=== PATIENT | male | born 1965 | race African-American/Black ===

== ENCOUNTER 2018-07-08 04:50 | Inpatient (IN) | payer OTHER, SELFPAY ==
[2018-07-08] MEDS ORDERED: Aspirin 325 MG TAB ONE (08:03)
[2018-07-08 09:03] LABS: Troponin I Less than 0.010 ng/mL (< 0.028)
[2018-07-08] MEDS ORDERED: Ondansetron PF 4 MG/2 ML Vial IVP PRN (10:22)
[2018-07-08] MEDS ORDERED: Acetaminophen 325 MG TAB PO PRN (10:22)
[2018-07-08] MEDS ORDERED: Ondansetron ODT 4 MG TAB PO PRN (10:22)
[2018-07-08] MEDS ORDERED: Dextrose 5% in Water 1,000 ML IV PRN (10:24)
[2018-07-08] MEDS ORDERED: HumaLOG 300 UNITS/3 ML VIAL SC PRN ×2 (10:24)
[2018-07-08] MEDS ORDERED: Dextrose 50% Abboject 50 ML SYRINGE SLOW IVP PRN (10:24)
[2018-07-08 12:01] LABS: #Basophils 0.1 thou/uL (0.0-0.2); #Eosinphils 0.4 thou/uL (0.0-0.7); #Lymphocytes 2.8 thou/uL (1.20-3.40); #Monocytes 0.4 thou/uL (0.11-0.59); #Neutrophils 4.1 thou/uL (1.40-6.50); %Basophils 1.2 % (0.0-1.0); %Eosinophils 5.1 % (0.0-10.0); %Lymphocytes 35.3 % (21.0-51.0); %Monocytes 5.3 % (0.0-10.0); %Neutrophils 53.1 % (42.0-75.0); Hemoglobin 11.8 g/dL (14.0-18.0); Mean Corpuscular HGB CONC 30.9 g/dL (32.0-36.0); Mean Corpuscular Hemoglobin 25.4 pg (27.0-31.0); Mean Corpuscular Volume 82.1 fL (78.0-98.0); Mean Platelet Volume 8.1 fL (7.4-10.4); Platelet Count 267 thou/uL (130-400); RBC Distribution Width 11.9 % (11.5-14.5); Red Blood Cell (RBC) Count 4.63 mill/uL (4.70-6.10); White Blood Cell (WBC) Count 7.8 thou/uL (4.8-10.8)
[2018-07-08 12:20] LABS: ALT (SGPT) 21 U/L (8-55); AST (SGOT) 18 U/L (5-34); Albumin 4.3 g/dL (3.5-5.0); Alkaline Phosphatase 69 U/L (40-150); Anion Gap 12 mmol/L (10-20); BUN (Urea Nitrogen) 17 mg/dL (8.4-25.7); Bilirubin, Total 0.6 mg/dL (0.2-1.2); Calc. Creatinine Clearance 0 mL/min (70-130); Calcium 9.4 mg/dL (7.8-10.44); Carbon Dioxide 24 mmol/L (22-29); Chloride 107 mmol/L (98-107); Estimated GFR-MDRD Greater than 90; Globulin 3.2 g/dL (2.4-3.5); Glucose 107 mg/dL (70-105); Potassium 4.1 mmol/L (3.5-5.1); Protein, Total 7.5 g/dL (6.0-8.3); Sodium 139 mmol/L (136-145)
[2018-07-08 12:25] LABS: Troponin I Less than 0.010 ng/mL (< 0.028)
--- NOTE | 2018-07-08 13:06 | HP ---
PRIMARY CARE PHYSICIAN: Dr. Luz Beasley. CHIEF COMPLAINT: Chest pain. HISTORY OF PRESENT ILLNESS: Mr. Partida is a pleasant 53-year-old male with a past medical history of coronary artery disease, hypertension, hyperlipidemia, and diabetes mellitus type 2, who had presented to [facility] with left-sided chest pain that started yesterday morning. He states he had gone to work and thought his chest pain would improve throughout the day; however, this was not the case. Therefore, he had left work, went home and took a baby aspirin. He states after he laid down for quite a while, his chest pain continued. Therefore, he brought himself to the ER. He states the pain is localized, but denies any radiation. He denies any fever, chills, headache, dizziness, any shortness of breath, abdominal pain, nausea, or vomiting. He denies any numbness, tingling down his extremities. He had denied any recent cardiac workup; however, he states he had a heart catheterization several years ago, which found stenosis, but no stents were placed. He states that he does not have any primary bulk pigment reducer that he follows up with and he sees his primary care physician for his underlying conditions. Currently, he states that the chest pain is improved. He got a dose of oral aspirin and topical nitroglycerin. His initial workup included a chest x-ray, which found no acute cardiopulmonary abnormalities. His initial troponin was found to be less than 0.010 x 2. Lipid panel was essentially unremarkable with total cholesterol 130, LDL 79, and HDL 44. Awaiting further recheck of his labs; however, done earlier at 2:00 a.m., essentially unremarkable with blood glucose of 124. It was determined that he would be admitted under observation for further cardiac workup. REVIEW OF SYSTEMS: All other systems reviewed and found to be negative unless mentioned in the HPI. PAST MEDICAL HISTORY: Coronary artery disease, hypertension, hyperlipidemia, and diabetes mellitus type 2. SURGICAL HISTORY: Cardiac catheterization with no stents placed. SOCIAL HISTORY: Alcohol use socially once or twice a month. He denies any tobacco or illicit drug use. PSYCHIATRIC HISTORY: None. ALLERGIES: NO KNOWN DRUG ALLERGIES. HOME MEDICATIONS: 1. Lisinopril 40 mg once daily. 2. Metformin 1000 mg twice daily. 3. Atorvastatin 40 mg once daily. 4. Levothyroxine 125 mcg oral once daily. PHYSICAL EXAMINATION: VITAL SIGNS: BP 110/64, pulse 82, respirations 17, O2 saturation 96% on room air. GENERAL: Alert and oriented x3, in no acute distress noted. HEENT: Atraumatic, normocephalic. Pupils round and reactive to light. Extraocular muscles intact. Moist mucous membranes noted. NECK: Soft and supple. No JVD. Nontender. No thyromegaly. CARDIOVASCULAR: Positive S1 and S2. Regular rate and rhythm. No murmurs, rubs, or gallops noted. RESPIRATORY: Clear to auscultation bilaterally. No wheezes, rales, or rhonchi. ABDOMEN: Soft, nontender, obese. Bowel sounds present. MUSCULOSKELETAL: Strength 5+ bilaterally upper and lower extremities. Moves all extremities equal. No edema noted. SKIN: Warm, dry, and intact. No lesions. No ulcerations noted. NEUROLOGIC: Cranial nerves 2 through 12 intact. No focal deficits noted. Speech normal and intact. Gait not assessed. PSYCHIATRIC: Good mood and affect. LABORATORY DATA: WBC 8.8, RBC 4.52, hemoglobin 11.4, platelet 272. Sodium 142, potassium 4.0, carbon dioxide 21, anion gap 16, BUN 26, creatinine 0.97, estimated GFR greater than 90, glucose 124. Last documented hemoglobin A1c 03/25/2018 was 6.1. BNP 34. Troponin less than 0.010 x2. Total cholesterol 130, LDL 79, HDL of 44. DIAGNOSTIC IMAGING: Chest x-ray showed no acute cardiopulmonary abnormalities. ASSESSMENT AND PLAN: 1. Chest pain, rule out cardiac etiology with treadmill stress test, trend troponins, currently negative x2. Continue on all home medications for blood pressure and underlying coronary artery disease. If stress test is significant, we will consult Cardiology Services. 2. History of hypertension. Continue on the patient's home regimen including lisinopril. Monitor vital signs closely. 3. History of hypothyroidism, continue on home dose of levothyroxine, check TSH. 4. History of diabetes mellitus type 2, hold the patient's home medication of metformin. Place on insulin sliding scale with Accu-Cheks. 5. Hyperlipidemia. Continue on the patient's home dose of atorvastatin. Lipid panel unremarkable at this time. 6. Deep venous thrombosis and gastrointestinal prophylaxis. CODE STATUS: Full code. DISPOSITION: Pending further workup and clinical findings. Rule out cardiac etiology of his chest pain. If his workup is negative, he will likely be discharged with close followup with his primary care physician in 24 to 48 hours. Job ID: [id number]
[2018-07-08 16:58] VITALS: BMI 32.2
[2018-07-08] MEDS: Famotidine 20 MG TAB PO SCH (20:20)
[2018-07-08] MEDS ORDERED: Famotidine/PF 20 mg/2ml Vial SLOW IVP SCH (21:00)
[2018-07-09 05:48] LABS: #Basophils 0.1 thou/uL (0.0-0.2); #Eosinphils 0.5 thou/uL (0.0-0.7); #Lymphocytes 2.5 thou/uL (1.20-3.40); #Monocytes 0.6 thou/uL (0.11-0.59); %Basophils 1.1 % (0.0-1.0); %Lymphocytes 28.6 % (21.0-51.0); %Monocytes 6.6 % (0.0-10.0); %Neutrophils 57.7 % (42.0-75.0); Hemoglobin 12.2 g/dL (14.0-18.0); Mean Corpuscular HGB CONC 30.6 g/dL (32.0-36.0); Mean Corpuscular Hemoglobin 25.3 pg (27.0-31.0); Mean Corpuscular Volume 82.7 fL (78.0-98.0); Mean Platelet Volume 8.4 fL (7.4-10.4); Platelet Count 270 thou/uL (130-400); Red Blood Cell (RBC) Count 4.82 mill/uL (4.70-6.10); White Blood Cell (WBC) Count 8.6 thou/uL (4.8-10.8)
[2018-07-09 06:04] LABS: Anion Gap 13 mmol/L (10-20); BUN (Urea Nitrogen) 13 mg/dL (8.4-25.7); Calc. Creatinine Clearance 150 mL/min (70-130); Calcium 9.9 mg/dL (7.8-10.44); Carbon Dioxide 25 mmol/L (22-29); Chloride 104 mmol/L (98-107); Estimated GFR-MDRD Greater than 90; Glucose 191 mg/dL (70-105); Potassium 4.1 mmol/L (3.5-5.1); Sodium 138 mmol/L (136-145)
[2018-07-09] MEDS: Enoxaparin Sodium 40 MG/0.4 ML SYRINGE SC SCH (08:37)
[2018-07-09] MEDS: Levothyroxine Sodium 125 MCG TAB PO SCH (08:37)
[2018-07-09] MEDS: Aspirin Chewable 81 MG TAB PO SCH (08:37)
[2018-07-09] MEDS: Lisinopril 20 MG TAB PO SCH (08:37)
[2018-07-09] MEDS: Famotidine 20 MG TAB PO SCH ×2 (08:37→20:31)
[2018-07-09] MEDS ORDERED: Non-Formulary Item 1 EACH (Aspirin 81 MG) PO SCH (09:00)
[2018-07-09] MEDS ORDERED: Non-Formulary Item 1 EACH (Lisinopril [Lisinopril] 40 MG) PO SCH (09:00)
--- NOTE | 2018-07-09 11:56 | NM ---
NUCLEAR MEDICINE CARDIAC STRESS TEST WITH EJECTION FRACTION: HISTORY: Chest pain. COMPARISON: None. TECHNIQUE: Stress and rest were performed after the intravenous administration of 33 and 27 mCi Technetium 99m s estamibi, respectively. FINDINGS: There is a small focal area of scar of the left ventricular apex. No reversible ischemic defect. There is global hypokinesis with ejection fraction of 33%. IMPRESSION: 1. Small apical scar due to prior infarct. 2. Global hypokinesis with ejection fraction of 33%. POS: REESE
--- NOTE | 2018-07-09 15:32 | PDOC.PN ---
- Subjective Encounter Start Date: 07/09/18 Encounter Start Time: 15:28 Patient lying in bed, he reports feeling better. Stress test showing decreased EF of 33% with global hypokenesis. He denies chest pain, shortness of breath or palpitations. - Objective Resuscitation Status - Order Detail: 07/08/18 10:22 Resuscitation Status Routine Co-Sign Provider: Resuscitation Status: FULL: Full Resuscitation MAR Reviewed: Yes Vital Signs & Weight: Vital Signs (12 hours) Temp Pulse Resp BP BP Pulse Ox 07/09/18 11:57 97.9 F 72 22 H 128/74 98 07/09/18 08:37 127/79 07/09/18 07:36 98.4 F 70 20 131/78 97 07/09/18 04:01 97.4 F L 79 20 127/79 97 Weight Weight 244 lb 2 oz I&O: 07/08/18 07/09/18 07/10/18 06:59 06:59 06:59 Intake Total 800 360 Balance 800 360 Result Diagrams: 07/09/18 04:28 07/09/18 04:28 Additional Labs: Accuchecks 07/09/18 07/09/18 07/08/18 10:25 06:27 21:02 POC Glucose 139 H 113 H 135 H Radiology Reviewed by me: Yes Phys Exam - Physical Examination Constitutional: NAD HEENT: PERRLA, moist MMs, oral pharynx no lesions Neck: no nodes, full ROM Respiratory: no wheezing, clear to auscultation bilateral Cardiovascular: RRR, no rub Gastrointestinal: soft, non-tender, positive bowel sounds Musculoskeletal: no edema, pulses present Neurological: non-focal, moves all 4 limbs Lymphatic: no nodes Psychiatric: normal affect, A&O x 3 Skin: no rash, cap refill <2 seconds Dx/Plan (1) Systolic heart failure Code(s): I50.20 - UNSPECIFIED SYSTOLIC (CONGESTIVE) HEART FAILURE Status: Acute (2) Hypertension Code(s): I10 - ESSENTIAL (PRIMARY) HYPERTENSION Status: Acute (3) Diabetes Code(s): E11.9 - TYPE 2 DIABETES MELLITUS WITHOUT COMPLICATIONS Status: Acute (4) Chest pain Code(s): R07.9 - CHEST PAIN, UNSPECIFIED Status: Acute - Plan cont current plan of care, DVT proph w/lovenox * Continue medical management * Add low dose carvedilol as HR and BP can tolerate * Check echo * Discussed stress results with patient * If echo abnormal will place consult for cardiology for further evaluation * Patient may require lifevest
[2018-07-09] MEDS: Carvedilol 3.125 MG TAB PO SCH (16:48)
[2018-07-09] MEDS: Atorvastatin Calcium 40 MG TAB PO SCH (20:31)
[2018-07-10 05:35] LABS: #Basophils 0.1 thou/uL (0.0-0.2); #Eosinphils 0.6 thou/uL (0.0-0.7); #Lymphocytes 2.7 thou/uL (1.20-3.40); #Monocytes 0.5 thou/uL (0.11-0.59); #Neutrophils 4.7 thou/uL (1.40-6.50); %Basophils 1.3 % (0.0-1.0); %Eosinophils 6.5 % (0.0-10.0); %Lymphocytes 30.9 % (21.0-51.0); %Monocytes 6.3 % (0.0-10.0); Hemoglobin 12.5 g/dL (14.0-18.0); Mean Corpuscular HGB CONC 31.1 g/dL (32.0-36.0); Mean Corpuscular Hemoglobin 25.7 pg (27.0-31.0); Mean Corpuscular Volume 82.6 fL (78.0-98.0); Mean Platelet Volume 8.1 fL (7.4-10.4); Platelet Count 277 thou/uL (130-400); Red Blood Cell (RBC) Count 4.88 mill/uL (4.70-6.10); White Blood Cell (WBC) Count 8.6 thou/uL (4.8-10.8)
[2018-07-10 05:54] LABS: Anion Gap 12 mmol/L (10-20); BUN (Urea Nitrogen) 16 mg/dL (8.4-25.7); Calc. Creatinine Clearance 156 mL/min (70-130); Calcium 9.5 mg/dL (7.8-10.44); Carbon Dioxide 26 mmol/L (22-29); Chloride 104 mmol/L (98-107); Estimated GFR-MDRD Greater than 90; Glucose 121 mg/dL (70-105); Potassium 3.9 mmol/L (3.5-5.1); Sodium 138 mmol/L (136-145)
[2018-07-10] MEDS: Aspirin Chewable 81 MG TAB PO SCH (08:15)
[2018-07-10] MEDS: Famotidine 20 MG TAB PO SCH ×2 (08:15→21:03)
[2018-07-10] MEDS: Enoxaparin Sodium 40 MG/0.4 ML SYRINGE SC SCH (08:15)
[2018-07-10] MEDS: Carvedilol 3.125 MG TAB PO SCH ×2 (08:15→17:52)
[2018-07-10] MEDS: Lisinopril 20 MG TAB PO SCH (08:16)
[2018-07-10] MEDS: Levothyroxine Sodium 125 MCG TAB PO SCH (08:16)
--- NOTE | 2018-07-10 17:10 | PDOC.PN ---
- Subjective Encounter Start Date: 07/10/18 Encounter Start Time: 17:02 Patient sitting up in bed, he had echo this morning, results pending. He reports feeling good today. Denies any further chest pain, palpitations, shortness of breath. He has tolerated low dose carvedilol so far. - Objective Resuscitation Status - Order Detail: 07/08/18 10:22 Resuscitation Status Routine Co-Sign Provider: Resuscitation Status: FULL: Full Resuscitation MAR Reviewed: Yes Vital Signs & Weight: Vital Signs (12 hours) Temp Pulse Resp BP BP Pulse Ox 07/10/18 16:11 98.5 F 77 16 127/82 98 07/10/18 11:25 98.1 F 71 20 114/70 100 07/10/18 08:00 98.0 F 67 20 134/76 99 07/10/18 05:06 59 L 18 133/77 99 Weight Weight 241 lb 4.8 oz I&O: 07/09/18 07/10/18 07/11/18 06:59 06:59 06:59 Intake Total 800 1420 Balance 800 1420 Result Diagrams: 07/10/18 04:38 07/10/18 04:38 Additional Labs: Accuchecks 07/10/18 07/10/18 07/09/18 16:46 11:29 20:29 POC Glucose 120 H 105 118 H Radiology Reviewed by me: Yes Phys Exam - Physical Examination Constitutional: NAD HEENT: PERRLA, moist MMs, oral pharynx no lesions Neck: no nodes, full ROM Respiratory: no wheezing, clear to auscultation bilateral Cardiovascular: RRR, no significant murmur Gastrointestinal: soft, positive bowel sounds Musculoskeletal: no edema, pulses present Neurological: non-focal, moves all 4 limbs Lymphatic: no nodes Psychiatric: normal affect, A&O x 3 Skin: no rash, cap refill <2 seconds Dx/Plan (1) Systolic heart failure Code(s): I50.20 - UNSPECIFIED SYSTOLIC (CONGESTIVE) HEART FAILURE Status: Acute (2) Hypertension Code(s): I10 - ESSENTIAL (PRIMARY) HYPERTENSION Status: Acute (3) Diabetes Code(s): E11.9 - TYPE 2 DIABETES MELLITUS WITHOUT COMPLICATIONS Status: Acute (4) Chest pain Code(s): R07.9 - CHEST PAIN, UNSPECIFIED Status: Acute - Plan cont current plan of care, DVT proph w/lovenox * Continue medical management * Due to systolic heart failure and reduced EF on stress test will make inpatient * He is tolerating low dose carvedilol * Consult cardiology placed * Await echo
[2018-07-10] MEDS: Atorvastatin Calcium 40 MG TAB PO SCH (21:03)
[2018-07-11 05:01] LABS: #Basophils 0.1 thou/uL (0.0-0.2); #Eosinphils 0.5 thou/uL (0.0-0.7); #Lymphocytes 3.3 thou/uL (1.20-3.40); #Monocytes 0.7 thou/uL (0.11-0.59); #Neutrophils 5.3 thou/uL (1.40-6.50); %Basophils 0.8 % (0.0-1.0); %Eosinophils 5.1 % (0.0-10.0); %Lymphocytes 33.2 % (21.0-51.0); %Neutrophils 53.9 % (42.0-75.0); Hemoglobin 12.5 g/dL (14.0-18.0); Mean Corpuscular HGB CONC 31.1 g/dL (32.0-36.0); Mean Corpuscular Hemoglobin 25.5 pg (27.0-31.0); Mean Corpuscular Volume 81.9 fL (78.0-98.0); Mean Platelet Volume 8.1 fL (7.4-10.4); Platelet Count 293 thou/uL (130-400); RBC Distribution Width 11.8 % (11.5-14.5); Red Blood Cell (RBC) Count 4.92 mill/uL (4.70-6.10); White Blood Cell (WBC) Count 9.8 thou/uL (4.8-10.8)
[2018-07-11] MEDS ORDERED: diphenhydrAMINE 25 MG CAP PO PRN (05:17)
[2018-07-11] MEDS: Lisinopril 20 MG TAB PO SCH (08:26)
[2018-07-11] MEDS: Aspirin Chewable 81 MG TAB PO SCH (08:27)
[2018-07-11] MEDS: Levothyroxine Sodium 125 MCG TAB PO SCH (08:27)
[2018-07-11] MEDS: Carvedilol 3.125 MG TAB PO SCH ×2 (08:27→17:47)
[2018-07-11] MEDS: Famotidine 20 MG TAB PO SCH ×2 (08:27→20:28)
[2018-07-11] MEDS: Enoxaparin Sodium 40 MG/0.4 ML SYRINGE SC SCH (08:27)
--- NOTE | 2018-07-11 18:03 | PDOC.PN ---
- Subjective Encounter Start Date: 07/11/18 Encounter Start Time: 18:01 Patient lying in bed, he reports feeling well. Denies chest pain, shortness of breath or palpitations. Tolerating carvedilol, lisinopril and other medical management. Echo showing EF 30% - Objective Resuscitation Status - Order Detail: 07/08/18 10:22 Resuscitation Status Routine Co-Sign Provider: Resuscitation Status: FULL: Full Resuscitation MAR Reviewed: Yes Vital Signs & Weight: Vital Signs (12 hours) Temp Pulse Resp BP Pulse Ox 07/11/18 15:30 98.8 F 70 15 140/83 100 07/11/18 11:12 98.6 F 64 15 124/58 L 96 07/11/18 08:25 97 07/11/18 07:14 97.7 F 70 16 128/75 97 07/11/18 06:07 98 Weight Weight 235 lb 6.4 oz I&O: 07/10/18 07/11/18 07/12/18 06:59 06:59 06:59 Intake Total 1420 1670 Output Total 525 Balance 1420 1145 Result Diagrams: 07/11/18 04:42 07/10/18 04:38 Additional Labs: Accuchecks 07/11/18 07/11/18 07/11/18 16:40 10:06 04:43 POC Glucose 109 125 H 103 07/10/18 20:36 POC Glucose 146 H Radiology Reviewed by me: Yes Phys Exam - Physical Examination Constitutional: NAD HEENT: PERRLA, moist MMs, oral pharynx no lesions Neck: no nodes, full ROM Respiratory: no wheezing, clear to auscultation bilateral Cardiovascular: RRR, no significant murmur Gastrointestinal: soft, non-tender, positive bowel sounds Musculoskeletal: no edema, pulses present Neurological: non-focal, moves all 4 limbs Lymphatic: no nodes Psychiatric: normal affect, A&O x 3 Skin: no rash, cap refill <2 seconds Dx/Plan (1) Systolic heart failure Code(s): I50.20 - UNSPECIFIED SYSTOLIC (CONGESTIVE) HEART FAILURE Status: Acute (2) Hypertension Code(s): I10 - ESSENTIAL (PRIMARY) HYPERTENSION Status: Acute (3) Diabetes Code(s): E11.9 - TYPE 2 DIABETES MELLITUS WITHOUT COMPLICATIONS Status: Acute (4) Chest pain Code(s): R07.9 - CHEST PAIN, UNSPECIFIED Status: Acute - Plan cont current plan of care, DVT proph w/lovenox * Continue medical management * Echo explained with patient * Cardiology following, appreciate further recommendations * Monitor vitals and labs *
[2018-07-11] MEDS: Atorvastatin Calcium 40 MG TAB PO SCH (20:28)
--- NOTE | 2018-07-11 21:20 | CON ---
DATE OF CONSULTATION: HISTORY OF PRESENT ILLNESS: Tien Partida is a 53-year-old black male who states that in 1997, he underwent cardiac catheterization at [facility] in [place]. He was told that his heart was enlarged, but that he had normal coronary arteries and that his heart was strong. He then saw Dr. Rajan in December 2015 in the office. EKG showed left ventricular hypertrophy. He was sent for evaluation of the abnormal EKG and found to have very high blood pressures. It was recommended that he undergo echocardiography, however, he never did return for followup. He now presents complaining of 3 episodes of chest discomfort that awakened him in the night. He describes this as a sharp stabbing pain in the lower part of his sternum without radiation. The pain was definitely pleuritic in nature and each episode would last 1 to 2 minutes. Also, over the last 3 or 4 months, he has noted increasing dyspnea on exertion. He denies any exertional chest discomfort. He also denies any leg edema. Due to the chest pain, he came to the emergency room, was treated with topical nitrates as well as chewable aspirin. He has undergone Cardiolite testing which revealed a small apical scar, felt to be due to infarct. There was global hypokinesis with ejection fraction of 33%. Echo was then performed, which revealed ejection fraction of 30% to 35% with evidence for diastolic dysfunction, left atrial enlargement, mild mitral regurgitation, and mild tricuspid regurgitation. PAST MEDICAL HISTORY: Hypertension, hyperlipidemia, diabetes, hypothyroidism, obesity (states he has lost 60 pounds since December). OPERATIONS: None except cardiac catheterization. MEDICATIONS: 1. Aspirin 81 daily. 2. Atorvastatin 40 at bedtime. 3. Levothyroxine 125 mcg daily. 4. Lisinopril 40 daily. 5. Metformin 1000 mg b.i.d. SOCIAL HISTORY: He stopped smoking 10 years ago. He rarely drinks. REVIEW OF SYSTEMS: A 10-point review of systems is otherwise unremarkable. PHYSICAL EXAMINATION: VITAL SIGNS: Blood pressure 123/75, pulse 68. HEENT: PERRL. NECK: Supple. CHEST: Clear. CARDIAC: S1 and S2 normal without any S3, S4, or murmurs. ABDOMEN: Normal bowel sounds without tenderness or organomegaly. EXTREMITIES: Revealed no clubbing, cyanosis, or edema. NEUROLOGICAL: Grossly intact. SKIN: Warm and dry. LABORATORY DATA: Cardiolite findings and echo as noted above. EKG reveals normal sinus rhythm and voltage criteria for left ventricular hypertrophy. Hemoglobin 12.5, hematocrit 40.3, white count 9800, platelets 293,000. Troponin I, all negative x4. Sodium 138, potassium 3.9, chloride 104, carbon dioxide 26, BUN 16, creatinine 0.84. TSH is normal. Cholesterol 130, triglycerides 36, HDL 44 , LDL 79. IMPRESSION: 1. Atypical chest discomfort with sharp stabbing pain and negative cardiac enzymes. I doubt that this pain is cardiac in nature. 2. Abnormal Cardiolite with finding of apical fixed defect. 3. Cardiomyopathy of uncertain etiology with ejection fraction of 30% to 35%. 4. Hypertension. 5. Hypercholesterolemia, poorly controlled, LDL 79 and diabetic. 6. Diabetes. 7. Former smoker. PLAN: Situation discussed with Mr. Partida. With his fixed apical defect as well as moderate left ventricular dysfunction, his coronary anatomy needs to be defined. Risks of catheterization were discussed including , myocardial infarction, dye reaction, vascular injury, CVA, transfusion, kidney damage, limb amputation, etc. Risks of intervention with stent placement were discussed including , myocardial infarction, emergent CABG, restenosis, stent thrombosis, vessel perforation, etc. He will be evaluated by Dr. Rajan on Friday, 13 of July. Job ID: [id number] [facility]ERY[facility]uf
[2018-07-11] MEDS ORDERED: Communication Order-Pharmacy FS SCH (21:45)
[2018-07-12] MEDS: Carvedilol 3.125 MG TAB PO SCH ×2 (08:42→17:51)
[2018-07-12] MEDS: Famotidine 20 MG TAB PO SCH ×2 (08:43→20:26)
[2018-07-12] MEDS: Levothyroxine Sodium 125 MCG TAB PO SCH (08:43)
[2018-07-12] MEDS: Aspirin Chewable 81 MG TAB PO SCH (08:43)
[2018-07-12] MEDS: Lisinopril 20 MG TAB PO SCH (08:43)
[2018-07-12] MEDS: Enoxaparin Sodium 40 MG/0.4 ML SYRINGE SC SCH (08:44)
--- NOTE | 2018-07-12 14:15 | PDOC.EVN ---
Event Note - Event Note Event Note: Discussed case with Heath. Reviewed record. Ira'd patient. He is doing well. No pain. Breathing better. Heart Regular, no M, Lungs CTAB. Newly diagnosed cardiomyopathy with multiple CAD risk factors. Stable for now. Coronary cath in am. All patient questions answered.
--- NOTE | 2018-07-12 16:21 | PDOC.PN ---
- Subjective Encounter Start Date: 07/12/18 Encounter Start Time: 16:17 Patient lying in bed with several family and friends at bedside. He denies chest pain, shortness of breath or abdominal pain. Plan for heart cath tomorrow with Dr Rajan. - Objective Resuscitation Status - Order Detail: 07/08/18 10:22 Resuscitation Status Routine Co-Sign Provider: Resuscitation Status: FULL: Full Resuscitation MAR Reviewed: Yes Vital Signs & Weight: Vital Signs (12 hours) Temp Pulse Resp BP BP Pulse Ox 07/12/18 16:08 98.2 F 75 16 121/67 100 07/12/18 11:32 98.1 F 71 16 113/73 07/12/18 08:43 125/72 07/12/18 08:35 98.1 F 71 16 125/72 100 07/12/18 08:10 100 07/12/18 04:54 98.6 F 78 18 104/51 L 98 Weight Weight 240 lb 9.6 oz I&O: 07/11/18 07/12/18 07/13/18 06:59 06:59 06:59 Intake Total 1670 1120 Output Total 525 1975 Balance 1145 -855 Result Diagrams: 07/11/18 04:42 07/10/18 04:38 Additional Labs: Accuchecks 07/12/18 07/12/18 07/11/18 10:35 06:05 20:28 POC Glucose 127 H 121 H 150 H 07/11/18 16:40 POC Glucose 109 Phys Exam - Physical Examination Constitutional: NAD HEENT: PERRLA, moist MMs Neck: no nodes Respiratory: no wheezing, no rales, clear to auscultation bilateral Cardiovascular: RRR, no significant murmur Gastrointestinal: soft, non-tender, positive bowel sounds Musculoskeletal: no edema, pulses present Neurological: non-focal, moves all 4 limbs Psychiatric: A&O x 3 Skin: no rash, cap refill <2 seconds Dx/Plan (1) Systolic heart failure Code(s): I50.20 - UNSPECIFIED SYSTOLIC (CONGESTIVE) HEART FAILURE Status: Acute (2) Hypertension Code(s): I10 - ESSENTIAL (PRIMARY) HYPERTENSION Status: Acute (3) Diabetes Code(s): E11.9 - TYPE 2 DIABETES MELLITUS WITHOUT COMPLICATIONS Status: Acute (4) Chest pain Code(s): R07.9 - CHEST PAIN, UNSPECIFIED Status: Acute - Plan cont current plan of care, plan discussed w/ family, DVT proph w/lovenox * Continue current medical management, currently asymptomatic * Plan for heart cath tomorrow * Await cath results for further management * All questions answered * Monitor vitals and labs * BP stable on current regimen
[2018-07-12] MEDS: Atorvastatin Calcium 40 MG TAB PO SCH (20:26)
[2018-07-13] MEDS: Lisinopril 20 MG TAB PO SCH (05:04)
[2018-07-13] MEDS: Levothyroxine Sodium 125 MCG TAB PO SCH (05:04)
[2018-07-13] MEDS: Aspirin Chewable 81 MG TAB PO SCH (05:04)
[2018-07-13] MEDS: Famotidine 20 MG TAB PO SCH ×2 (05:05→20:21)
[2018-07-13] MEDS: Carvedilol 3.125 MG TAB PO SCH ×2 (05:06→16:30)
[2018-07-13] MEDS ORDERED: Iopamidol 370 76% 100 ML VIAL ONE (09:22)
[2018-07-13] MEDS ORDERED: Fentanyl 100 MCG/2 ML VIAL ONE (10:39)
[2018-07-13] MEDS ORDERED: Midazolam HCl 2 mg/2 ml Vial ONE (10:39)
[2018-07-13] MEDS ORDERED: Nitroglycerin 100MG/250ML BOT 250 ML ONE (11:02)
[2018-07-13] MEDS ORDERED: Nitroglycerin 0.4 MG TAB (25 Tab Bottle) SL PRN (11:16)
[2018-07-13] MEDS ORDERED: traMADol HCl 50 MG TAB PO PRN (11:16)
[2018-07-13] MEDS ORDERED: Acetaminophen/Codeine 30-300mg Tablet PO PRN (11:16)
[2018-07-13] MEDS ORDERED: Sodium Chloride 0.9% 200 ML IV SCH (11:30)
[2018-07-13] MEDS ORDERED: Sodium Chloride 0.9% 1,000 ML IV SCH (11:30)
[2018-07-13] MEDS: Atorvastatin Calcium 40 MG TAB PO SCH (20:20)
--- NOTE | 2018-07-13 21:29 | PDOC.PN ---
- Subjective Encounter Start Date: 07/13/18 Encounter Start Time: 13:30 Patient seen and examined for CP/CHF. No CP. No new complaints. No overnight events - Objective Resuscitation Status - Order Detail: 07/08/18 10:22 Resuscitation Status Routine Co-Sign Provider: Resuscitation Status: FULL: Full Resuscitation MAR Reviewed: Yes Vital Signs & Weight: Vital Signs (12 hours) Temp Pulse Resp BP Pulse Ox 07/13/18 16:05 98.1 F 60 16 106/62 99 07/13/18 12:35 98.3 F 64 17 128/69 100 Weight Weight 243 lb I&O: 07/12/18 07/13/18 07/14/18 06:59 06:59 06:59 Intake Total 1120 1125 1025 Output Total 1975 1225 670 Balance -855 -100 355 Result Diagrams: 07/11/18 04:42 07/10/18 04:38 Additional Labs: Accuchecks 07/13/18 07/13/18 07/13/18 20:34 16:46 06:13 POC Glucose 138 H 84 140 H EKG Reviewed by me: Yes (Tele SR) Phys Exam - Physical Examination Constitutional: NAD Respiratory: no wheezing, no rhonchi Cardiovascular: RRR, no rub Gastrointestinal: soft, non-tender, positive bowel sounds Musculoskeletal: no edema Neurological: moves all 4 limbs Dx/Plan (1) Chest pain Code(s): R07.9 - CHEST PAIN, UNSPECIFIED Status: Acute (2) Obesity (BMI 30.0-34.9) Code(s): E66.9 - OBESITY, UNSPECIFIED Status: Chronic (3) Diabetes Code(s): E11.9 - TYPE 2 DIABETES MELLITUS WITHOUT COMPLICATIONS Status: Chronic Qualifiers: Diabetes mellitus type: type 2 (4) Hypertension Code(s): I10 - ESSENTIAL (PRIMARY) HYPERTENSION Status: Chronic (5) Systolic heart failure Code(s): I50.20 - UNSPECIFIED SYSTOLIC (CONGESTIVE) HEART FAILURE Status: Chronic Qualifiers: Heart failure chronicity: chronic Qualified Code(s): I50.22 - Chronic systolic (congestive) heart failure - Plan cont current plan of care, DVT proph w/SCDs s/p Cath - Negative per patient (report pending) -: Cont ACEI/Coreg -: Cont other meds as below -: DC home after Lifevest setup Review of Systems - Review of Systems Respiratory: negative: Cough, Dry, Shortness of Breath, Hemoptysis, SOB with Excertion, Pleuritic Pain, Sputum, Wheezing Cardiovascular: negative: chest pain, palpitations, orthopnea, paroxysmal nocturnal dyspnea, edema, light headedness, other - Medications/Allergies Allergies/Adverse Reactions: Allergies Allergy/AdvReac Type Severity Reaction Status Date / Time No Known Allergies Allergy Verified 07/08/18 17:24 Medications: Current Medications Acetaminophen (Tylenol) 650 mg PO Q4H PRN PRN Reason: Headache/Fever/Mild Pain (1-3) Acetaminophen/Codeine Phosphate (Tylenol #3) 1 tab PO Q4H PRN PRN Reason: Mild Pain (1-3) Aspirin (Aspirin Chewable) 81 mg PO DAILY [facility] Last Admin: 07/13/18 05:04 Dose: 81 mg Atorvastatin Calcium (Lipitor) 40 mg PO HS [facility] Last Admin: 07/13/18 20:20 Dose: 40 mg Carvedilol (Coreg) 3.125 mg PO BID-[facility] Last Admin: 07/13/18 16:30 Dose: 3.125 mg Dextrose/Water (Dextrose 50%) 25 gm SLOW IVP PRN PRN PRN Reason: Hypoglycemia Diphenhydramine HCl (Benadryl) 25 mg PO Q12H PRN PRN Reason: Itching Famotidine (Pepcid) 20 mg PO Q12HR [facility] Last Admin: 07/13/18 20:21 Dose: 20 mg Glucagon (Glucagon) 1 mg IM PRN PRN PRN Reason: Hypoglycemia Dextrose/Water (D5w) 1,000 mls @ 0 mls/hr IV .Q0M PRN PRN Reason: Hypoglycemia Insulin Human Lispro (Humalog) 0 units SC .MILD SLIDING SCALE PRN PRN Reason: Mild Correctional Scale Insulin Human Lispro (Humalog) 0 units SC .BEDTIME SLIDING SC PRN PRN Reason: Bedtime Correctional Scale Levothyroxine Sodium (Synthroid) 125 mcg PO 0600 [facility] Last Admin: 07/13/18 05:04 Dose: 125 mcg Lisinopril (Zestril) 40 mg PO DAILY [facility] Last Admin: 07/13/18 05:04 Dose: 40 mg Nitroglycerin (Nitrostat) 0.4 mg SL Q5MIN PRN PRN Reason: Chest Pain Ondansetron HCl (Zofran Odt) 4 mg PO Q6H PRN PRN Reason: Nausea/Vomiting Ondansetron HCl (Zofran) 4 mg IVP Q6H PRN PRN Reason: Nausea/Vomiting Sodium Chloride (Flush - Normal Saline) 10 ml IVF PRN PRN PRN Reason: Saline Flush Last Admin: 07/12/18 08:44 Dose: 10 ml Tramadol HCl (Ultram) 50 mg PO Q6H PRN PRN Reason: Moderate Pain (4-6)
[2018-07-13 22:24] VITALS: TEMP 97.7
[2018-07-14] MEDS: Levothyroxine Sodium 125 MCG TAB PO SCH (05:11)
[2018-07-14] MEDS: Lisinopril 20 MG TAB PO SCH (08:16)
[2018-07-14] MEDS: Carvedilol 3.125 MG TAB PO SCH (08:17)
[2018-07-14] MEDS: Famotidine 20 MG TAB PO SCH (08:17)
[2018-07-14] MEDS: Aspirin Chewable 81 MG TAB PO SCH (08:17)
--- NOTE | 2018-07-14 11:01 | PDOC.PN ---
- Subjective Encounter Start Date: 07/14/18 Encounter Start Time: 11:00 Mr. Partida was seen today in follow-up of CHF exacerbation. He does not have any complaints today. He denies chest pain or shortness of breath. - Objective Resuscitation Status - Order Detail: 07/08/18 10:22 Resuscitation Status Routine Co-Sign Provider: Resuscitation Status: FULL: Full Resuscitation MAR Reviewed: Yes Vital Signs & Weight: Vital Signs (12 hours) Temp Pulse Resp BP BP Pulse Ox 07/14/18 08:16 118/74 07/14/18 07:45 97.7 F 64 16 118/74 100 07/14/18 04:00 97.7 F 70 20 120/72 98 Weight Weight 243 lb 8 oz I&O: 07/13/18 07/14/18 07/15/18 06:59 06:59 06:59 Intake Total 1125 2015 Output Total 1225 670 Balance -100 1345 Result Diagrams: 07/11/18 04:42 07/10/18 04:38 Additional Labs: Accuchecks 07/14/18 07/14/18 07/13/18 10:42 05:36 20:34 POC Glucose 118 H 103 138 H 07/13/18 16:46 POC Glucose 84 Phys Exam - Physical Examination HEENT: PERRLA Respiratory: no wheezing, no rales, no rhonchi, clear to auscultation bilateral Cardiovascular: RRR, no significant murmur, no rub Gastrointestinal: soft, non-tender, no distention, positive bowel sounds Musculoskeletal: no edema, pulses present Dx/Plan (1) Acute systolic congestive heart failure, NYHA class 2 Code(s): I50.21 - ACUTE SYSTOLIC (CONGESTIVE) HEART FAILURE Status: Acute (2) Diabetes Code(s): E11.9 - TYPE 2 DIABETES MELLITUS WITHOUT COMPLICATIONS Status: Chronic Qualifiers: Diabetes mellitus type: type 2 (3) Hypertension Code(s): I10 - ESSENTIAL (PRIMARY) HYPERTENSION Status: Chronic (4) Obesity (BMI 30.0-34.9) Code(s): E66.9 - OBESITY, UNSPECIFIED Status: Chronic - Plan * Acute systolic heart failure- compensated * HTN - blood pressure is controlled * DM- blood glucose is stable * He has been fitted for the Life Vest, an is stable for discharge home..
[2018-07-14 12:01] VITALS: BP 138/76
--- NOTE | 2018-07-15 01:29 | DIS ---
DATE OF ADMISSION: 07/08/2018 DATE OF DISCHARGE: 07/14/2018 PRIMARY CARE PHYSICIAN: Luz Beasley MD. DISCHARGE DISPOSITION: Home. PRIMARY DISCHARGE DIAGNOSES: 1. Acute combined systolic and diastolic heart failure. 2. Hypertension. 3. Diabetes mellitus. DISCHARGE MEDICATIONS: Include, 1. Lasix 40 mg daily as needed. 2. Coreg 3.125 mg twice daily. 3. Atorvastatin 40 mg at bedtime. 4. Metformin 1000 mg twice daily. 5. Lisinopril 40 mg daily. 6. Levothyroxine 125 mcg daily. 7. Aspirin 81 mg a day. PROCEDURES DONE DURING ADMISSION: The patient had a nuclear stress test showing global hypokinesis with an ejection fraction of 33% and apical scar. The patient also had an echocardiogram, in which the ejection fraction was estimated at 30% to 35%. There was an E to A flow reversal noted suggestive of diastolic dysfunction. CODE STATUS: Full code. ALLERGIES: NO KNOWN DRUG ALLERGIES. HOSPITAL COURSE: Mr. Partida is a pleasant 53-year-old gentleman, who presented to the emergency room complaining of chest pain. He was evaluated and found to have both systolic as well as diastolic heart failure. He was evaluated by Cardiology and the patient was placed on medications specifically for control of his heart failure. He was also fitted for a LifeVest prior to discharge and will be discharged with a LifeVest, and has been instructed on the need for continued outpatient monitoring of his blood pressure as well as heart failure management. He also will need to be off work until he can be further evaluated in the outpatient setting considering that he drives a school bus for living. This was communicated to the patient as well. Job ID: [id number]
--- NOTE | 2018-07-25 12:40 | EKG ---
Test Reason : CHESTPAIN Blood Pressure : / mmHG Vent. Rate : 071 BPM Atrial Rate : 071 BPM P-R Int : 160 ms QRS Dur : 114 ms QT Int : 414 ms P-R-T Axes : -01 000 -14 degrees QTc Int : 449 ms Normal sinus rhythm Voltage criteria for left ventricular hypertrophy T wave abnormality, consider inferior ischemia Abnormal ECG Confirmed by DAVID MCNEAL, MARY ([id number]), photograph editor ROMAN LACEY ([id number]) on 07/25/2018 12:39:34 PM Referred By: DAVID Confirmed By:MARY HERNANDEZ MD
== END 2018-07-14 12:09 | disposition home or self-care (01) | DRG 287 ==
LOC: ERS 04:50 → ERHOLD 05:53 → OBSVTOIN 05:53 → 2SW 16:50 → 2NO 07-11 21:58
PROVIDERS: ADMIT Hospitalist; ATTEND Hospitalist
PROC: 4A023N7 Measurement of Cardiac Sampling and Pressure, Left Heart, Percutaneous Approach (ICD-10-PCS; principal; 2018-07-13)
PROC: B2111ZZ Fluoroscopy of Multiple Coronary Arteries using Low Osmolar Contrast (ICD-10-PCS; 2018-07-13)
DX: I11.0 Hypertensive heart disease with heart failure (principal); I50.41 Acute combined systolic (congestive) and diastolic (congestive) heart failure; I25.10 Atherosclerotic heart disease of native coronary artery without angina pectoris; E78.5 Hyperlipidemia, unspecified; E11.9 Type 2 diabetes mellitus without complications; E03.9 Hypothyroidism, unspecified; I42.9 Cardiomyopathy, unspecified; I34.0 Nonrheumatic mitral (valve) insufficiency; E66.9 Obesity, unspecified; Z68.32 Body mass index [BMI] 32.0-32.9, adult; Z79.84 Long term (current) use of oral hypoglycemic drugs; Z79.899 Other long term (current) drug therapy; Z87.891 Personal history of nicotine dependence
CPT/HCPCS: 36415; 36416; 78452; 80048; 80061; 84443; 85025; 93005; 93017; 93306; 93458; 93798; 94760; 99152; A9500; C1769; J1644; J1650; J2250; J3010; Q9967